=== PATIENT | female | born 1950 | race Caucasian/White ===

== ENCOUNTER → 2016-11-02 | Day surgery (SDC) | payer MEDICARE, OTHER ==
[~2016-11-02] MED LIST: BUPIVACAINE HCL PF 0.75% 30 ML VIAL ONE; EPINEPHrine HCL (1:1000) 30 MG/30 ML VIAL OTHER ONE; LACTATED RINGER'S 1000 ML INJ 1,000 ML ONE; LIDOCAINE 1.5%/EPINEPHrine 1:200,000 PF SOLN 30 ML AMP ONE; MEPERIDINE HCL 25 MG/ML VIAL ONE; MIDAZOLAM HCL 5 MG/ML VIAL (1 ML) ONE; PROPOFOL 200 MG/20 ML AMP IV ONE; ceFAZolin 2 GM PREMIX 50 ML ONE
--- NOTE | 2016-11-04 22:45 | MP ---
cc: RITIKA FANG M.D. DATE OF SURGERY: 11/02/2016 PREOPERATIVE DIAGNOSIS: Right shoulder rotator cuff tear, impingement syndrome. POSTOPERATIVE DIAGNOSIS 1. Right shoulder full-thickness rotator cuff tear involving the supraspinatus tendon. 2. Small areas of delaminated cartilage on the glenoid surface and humeral head. 3. Impingement syndrome. PROCEDURE 1. Right shoulder arthroscopic rotator cuff repair. 2. Right shoulder arthroscopic subacromial decompression. ANESTHESIA: Interscalene block and general SURGEON Ritika Fang MD MULTIPLE SCLEROSIS NURSE SURGEON MELISSA Ferrari. ESTIMATED BLOOD LOSS: Minimal DRAINS: None. SPECIMEN: None. COMPLICATIONS: None known. INDICATION Frida Rose is a 65-year-old female with persistent right shoulder pain. She presents now for surgical intervention. A detailed informed consent has been obtained. The magistrate assistant Don Landry, is an advanced registered nurse practitioner. His skill set was medically necessary for the performance of the operation. He held the arm in multiple different positions, helped with complex instrumentation and was medically necessary for the performance of the operation. DESCRIPTION OF PROCEDURE: The patient was brought to the operating room. In the preop holding she had been given a preop interscalene block. In the operating room she was placed under general anesthetic. She was turned to the lateral decubitus position with axillary roll in place, right shoulder up. The right shoulder was draped and prepped in the usual sterile fashion. Ten pounds of traction with a traction boom, IV antibiotics were given. Time-out completed. We made two portals, one on the posterior soft spot, one in the anterior junction of the anterior 1/3 of the acromion and the middle 1/3. Blunt trocar was used to introduce the cannula posteriorly. The first photograph showed small area of delaminated cartilage on the inferior aspect of the glenoid. The probe was brought directly through the rotator cuff tear. The second photograph is looking upwards at the full thickness rotator cuff tear. It was photographed from this side. There was some mild fraying of the superior labrum. We brought the shaver in and smoothed down the area of delaminated cartilage on the anterior glenoid and trimmed the edges, and then spent quite a bit of time debriding the undersurface rotator cuff tear and then the footprint also noted some delaminated cartilage on the edge of the footprint, and this was debrided down. We debrided down to bone and then came into the subacromial space, performed subacromial bursectomy and then proceeded with visualizing the rotator cuff tear and debriding unstable edges and getting good footprint bleeding of bone. Then we used the SpeedBridge technique with two anchors on the articular cartilage margin and then two anchors laterally. On each side we used accessory suture to hold down a dog ear. Final photograph shows the final result. The anterior acromial spurring had been identified and we performed anterior acromionectomy using the shaver on bur mode and removed approximately 5 mm of bone on the most anterior aspect. Follow-up photograph, photograph number four showed that. The arthroscopic equipment was removed, closed with absorbable sutures. Steri-Strips applied, sterile dressing applied. The patient was awoken and returned to the recovery room in stable condition. MD VIRA Palumbo/JAMIL /11:01 AM /10:08 PM
== END | disposition home or self-care (01) ==
LOC: ESDC 06:58
PROVIDERS: ATTEND Orthopaedic Surgery Sports Medicine
DX: M75.121 Complete rotator cuff tear or rupture of right shoulder, not specified as traumatic (principal); M75.41 Impingement syndrome of right shoulder
CPT/HCPCS: 01630; 01991; 29826; 29827; 64417; C1713; J0171; J0690; J2175; J2250; J7120